=== PATIENT | male | born 1970 | race Caucasian/White ===

== ENCOUNTER 2017-09-12 05:14 | Observation (INO) | payer OTHER ==
[~2017-09-12] VITALS: Ht 172.7 cm; Wt 106.6 kg
--- NOTE | ~2017-09-12 | EKG ---
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 09/12/17 0749 0639 0639 Neno Burch MD, FACC /EPI
--- NOTE | ~2017-09-12 | O ---
[facility] [place] [address] OPERATIVE REPORT Name: KAILEY SYKES Room #: 435-P [facility] M.R.#: [id number] Admission: 09/12/17 Attend Phys: Perry Dominguez MD Discharge: Date of : 66 Report #: [id number] THIS REPORT FOR: //name// CC: Joel Hernandez Jr MD FAM unknown Perry Whitman MD DATE OF SERVICE: 09/12/2017 PREOPERATIVE DIAGNOSIS: Primary hyperparathyroidism. POSTOPERATIVE DIAGNOSES: Primary hyperparathyroidism, right superior parathyroid adenoma plus left thyroid mass. OPERATION: 1. Neck exploration. 2. Resection of right superior parathyroid adenoma. 3. Resection of left thyroid mass. 4. Intraoperative nerve monitoring. 5. Intraoperative PTH monitoring. SURGEON: Perry Dominguez MD. ANESTHESIA: General. DESCRIPTION OF PROCEDURE: Under satisfactory general endotracheal anesthesia and with the patient in the supine position, the neck was widely prepped with ChloraPrep solution and sterile drapes were applied. A transverse cervical collar incision was made and this was carried down through the platysma. The skin flaps were developed using electrocautery. The fascia was divided in the midline and the strap muscles were retracted laterally. The right thyroid lobe was mobilized, controlling the middle thyroid veins using Harmonic scalpel. The right recurrent laryngeal nerve and inferior thyroid artery were identified and protected from harm. We utilized the NIMS device to verify location and function of the nerve on both sides of the neck throughout the case. We found a normal right inferior parathyroid gland. We found a classic appearing right superior parathyroid adenoma, which was near the nerve. The adenoma was carefully dissected away from surrounding tissues with care being taken to avoid injury to the recurrent laryngeal nerve. The blood supply to the parathyroid adenoma was controlled using Harmonic scalpel. Frozen section confirmed the presence of a classic parathyroid adenoma measuring 300 mg. Next, the left side of the neck was explored since the radiologist had found a left-sided mass which could be a second adenoma according to the radiologist. The left thyroid lobe was normal as was the right thyroid lobe; however, there was a nodule at the periphery of the left inferior thyroid lobe, which felt like it might be a [facility] [address] [place] [address] OPERATIVE REPORT Name: KAILEY SYKES Room #: 435-P [facility] [place]#: [id number] Admission: 09/12/17 Attend Phys: Perry Dominguez MD Discharge: Date of : 66 Report #: [id number] separate nodule. The left recurrent laryngeal nerve was identified and protected from harm. The left superior parathyroid gland appeared normal. The left inferior parathyroid gland appeared normal. The thyroid mass was resected since it could be a second parathyroid adenoma, although this was felt to be unlikely. Frozen section revealed a benign thyroid nodule as expected. During this time, the intraoperative PTH levels were drawn. The preop baseline PTH level was 146 and 10 minutes after removal of the right superior parathyroid adenoma, the PTH level was 9, which was an excellent drop. Hemostasis was carefully checked and was found to be excellent. The sponge, instrument and needle counts were reported as correct. The incision was closed using running 3-0 Vicryl for the midline fascia, running 3-0 Vicryl for the platysma, and running 4-0 PDS for the subcuticular layer. Sterile dressings were applied and the patient was taken to recovery in satisfactory condition. Estimated blood loss was less than 10 mL. <ELECTRONICALLY SIGNED> By: Perry Dominguez MD 09/13/17 0643 1045 1105 Perry Dominguez MD /nt
--- NOTE | ~2017-09-12 | S ---
[facility] [place] [address] SURGICAL PATH RPT PROCEDURE Name: EULOGIO CHASE Room #: 435-P [facility] Dane Haile#: [id number] Admission: 09/12/17 Date of : 66 Discharge: 09/13/17 Report #: [id number] Path Case #: [id number] PATHOLOGY REPORT COLLECTION DATE: 09/12/2017 RECEIVED DATE: 09/12/2017 SUBMITTING PHYS: Dr. Perry Dominguez OTHER PHYS: Dr. Joel Whitman SPECIMEN(S) RECEIVED: A.Right superior parathyroid adenoma B.Left neck mass * * * * * * * * * * * * FINAL DIAGNOSIS: A. "Right superior parathyroid adenoma," excision: - Hypercellular parathyroid gland weighing 0.3 grams. (see comment) B. "Left neck mass," excisional biopsy: - Thyroid tissue with nodular hyperplasia and foci of chronic inflammation. COMMENT: Within specimen A, the hypercellular parathyroid gland weighing 0.3 grams is histologically compatible with a parathyroid adenoma. Clinical and surgical correlation is required to confirm that the remaining parathyroid glands are of normal size and to exclude nodular hyperplasia. Correlation with clinical history, additional laboratory data, and radiographic findings is recommended. (QUINTINW:; 09/13/2017) PATHOLOGIST: Santa Navarro M.D. REPORT ELECTRONICALLY SIGNED BY: Santa Navarro M.D. DATE/TIME: 09/13/2017 20:46 * * * * * * * * * * * * GROSS PATHOLOGY: A. Received fresh from the OR, labeled, "Eulogio Chase - Right superior parathyroid adenoma," is a 0.3 gram lobular / glandular fragment of atkinson-brown tissue measuring 1.1 x 1.0 x 0.6 cm. It is bisected. A touch imprint is performed over one-half. The opposite remaining half is submitted for one frozen section. The frozen section and unfrozen portion are entirely submitted as A1. B. Received fresh from the MD, labeled, "Eulogio Chase - Left neck mass," is a 0.3 gram lobular / glandular fragment of atkinson-brown tissue measuring 1.3 x 0.6 x 0.7 cm. It is bisected. Touch imprints [address] [address] SURGICAL PATH RPT PROCEDURE Name: EULOGIO CHASE Room #: 435-P [facility].R.#: [id number] Admission: 09/12/17 Date of : 66 Discharge: 09/13/17 Report #: [id number] Path Case #: [id number] are performed over one-half. The opposite remaining half is submitted for one frozen section. The frozen section and unfrozen portion are entirely submitted as B1. (CLW:gene; 09/12/2017) FROZEN SECTION DIAGNOSIS: (Santa Navarro MD) A1FS. "Right superior parathyroid adenoma": - Hypercellular parathyroid gland weighing 0.3 grams. - Touch Prep with neuroendocrine-appearing cells. B1FS. "Left neck mass": - Thyroid with chronic inflammation. - Touch Prep with colloid, abundant lymphocytes and rare follicular cells. The case was discussed with Dr. Perry Dominguez in the operating room and written reports were placed in the patient's chart. (CLW:gene; 09/12/2017) Testing performed (Frozen section and Touch Prep) by [facility] at [facility] [address], [place] [address] CLINICAL HISTORY: Primary hyperparathyroidism. INITIAL CPT CODE(S): A; 44871, 93932, 02770 B; 43973, 80917, 55525 Professional services performed by [facility] at [facility] [address], [place] [address] Technical services performed by [facility] at [address] [place] [address], [address], [place] [address]. [facility] [address] [place] [address] PHONE: [phone] DIRECTOR: Miguel Hodge M.D. * * * END OF REPORT * * *
[2017-09-12 07:00] VITALS: BP 102/65
[2017-09-12 07:22] LABS: HEMATOCRIT 42.5 % (42.0-52.0); MCH 29.2 pg (26.0-34.0); MCV 88.3 fL (80.0-100.0); RBC 4.82 mil/uL (4.50-6.00); RDW 14.4 % (10.5-14.5); WBC 4.3 thou/uL (4.0-11.0)
[2017-09-12 07:36] LABS: CALCIUM 10.6 mg/dL (8.5-10.1); CREATININE 0.9 mg/dL (0.7-1.3); INR 1.1; PROTIME 11.4 Seconds (9.3-11.4)
[2017-09-12 07:38] LABS: POTASSIUM 4.4 mmol/L (3.5-5.1)
[2017-09-12 07:41] LABS: ALBUMIN 3.7 g/dL (3.4-5.0); TOTAL BILIRUBIN 0.5 mg/dL (<0.1-1.0); TOTAL PROTEIN 7.4 g/dL (6.4-8.2)
[2017-09-12 14:30] VITALS: BP 105/68
[2017-09-12 15:25] VITALS: BP 103/66
[2017-09-12 19:30] VITALS: BP 104/66
[2017-09-13 00:35] VITALS: BP 103/58
[2017-09-13 04:40] VITALS: BP 96/54
[2017-09-13 07:15] VITALS: BP 98/64
[2017-09-13 09:45] VITALS: BP 98/64
== END 2017-09-13 12:13 | disposition home or self-care (01) ==
LOC: OR 05:14 → TBA 05:14 → OR 11:47 → 4S 14:41 → OR 14:43 → ENTRNSPT 09-13 10:12 → EDTRNSPTSTS 09-13 10:14 → 4S 09-13 12:13
PROVIDERS: Anesthesiology
DX: E21.0 Primary hyperparathyroidism (principal); M54.2 Cervicalgia
CPT/HCPCS: 50010; 50101; 50386; 50403; 52190; 52220; 56524; 56526; 56639; 62110; 62900; 70005